=== PATIENT | female | born 1955 | race Caucasian/White ===

== ENCOUNTER → 2020-10-10 | Outpatient (CLI) | payer OTHER ==
[~2020-10-10] MED LIST: APAP W/CODEINE1 TA2 PO; AUGMENTIN 875-1 EACH PO; AVELOX400 MG PO; BAYER CHEWABLE81 MG PO; CALCIUM CARBO1000 MG PO; CYMBALTA30 MG PO; CYMBALTA60 MG PO; ELESTRIN26 GM TOP; FISH OIL 1,001000 M2 PO; FISHOIL; GARLIC OIL1 EACH PO; HYDROXYCHLOROQ200 M1 PO; METHOTREXATE 22.5 MG GT; MULTIPLE VITAM1 EAC1 PO; NAPROXEN 375 M375 M1 PO; NORCO 5-325 TA1 EACH PO; PREMARIN0.9 M1 PO; PROAIR HFA8.5 GM IH; PROLIA60 MG/1 ML INJECTION; TUMS PO; WELLBUTRIN SR150 MG PO; ZOFRAN4 MG PO; ZOLOFT100 MG PO
== END ==
LOC: CAT 09:22
PROVIDERS: ATTEND Family Medicine
DX: Z13.6 Encounter for screening for cardiovascular disorders (principal); I25.10 Atherosclerotic heart disease of native coronary artery without angina pectoris; E78.00 Pure hypercholesterolemia, unspecified

== ENCOUNTER → 2021-09-18 | Outpatient (CLI) | payer OTHER | LOC: SJCVCIMAG 12:17 | PROVIDERS: ATTEND Internal Medicine | DX: R94.31 Abnormal electrocardiogram [ECG] [EKG] (principal); R09.89 Other specified symptoms and signs involving the circulatory and respiratory systems; Z87.891 Personal history of nicotine dependence; Z88.1 Allergy status to other antibiotic agents; Z79.899 Other long term (current) drug therapy; Z82.49 Family history of ischemic heart disease and other diseases of the circulatory system ==

== ENCOUNTER → 2021-09-24 | Outpatient (CLI) | payer OTHER | LOC: SJCVCIMAG | PROVIDERS: ATTEND Nurse Practitioner | DX: R53.83 Other fatigue (principal); R22.1 Localized swelling, mass and lump, neck ==

== ENCOUNTER → 2021-09-25 | Outpatient (CLI) | payer OTHER | LOC: SJCVC 09:48 | PROVIDERS: ATTEND Internal Medicine | DX: M54.2 Cervicalgia (principal); M81.0 Age-related osteoporosis without current pathological fracture; F32.A Depression, unspecified; Z90.710 Acquired absence of both cervix and uterus; Z90.722 Acquired absence of ovaries, bilateral; Z98.890 Other specified postprocedural states; Z87.891 Personal history of nicotine dependence; Z88.1 Allergy status to other antibiotic agents; Z79.899 Other long term (current) drug therapy ==

== ENCOUNTER → 2021-09-25 | Outpatient (CLI) | payer OTHER | LOC: CAT 10:25 | PROVIDERS: ATTEND Internal Medicine | DX: Z13.6 Encounter for screening for cardiovascular disorders (principal); E78.00 Pure hypercholesterolemia, unspecified; I25.10 Atherosclerotic heart disease of native coronary artery without angina pectoris ==